=== PATIENT | female | born 1985 | race Caucasian/White ===

== ENCOUNTER 2017-12-12 07:25 | Emergency (ER) | payer OTHER ==
[~2017-12-12] VITALS: Ht 172.7 cm; Wt 90.7 kg
[~2017-12-12 07:25] MED LIST: BENTYL20 MG PO; HYDACE5 PO; IBUP400 PO; Prilosec20 MG PO; RXHYD5325 PO; Zofran Odt4 MG SL
[2017-12-12] MEDS ORDERED: ARIP10 PO (07:57)
[2017-12-12] MEDS ORDERED: LAMICTAL ODT50 MG PO (07:57)
[2017-12-12] MEDS ORDERED: Ativan0.5 MG PO (07:57)
[2017-12-12 09:31] LABS: BASOPHILS ABSOLUTE AUTO 0.01 K/mm3 (0.00-0.23); BASOPHILS PERCENT AUTO 0 % (0-2); EOSINOPHILS PERCENT AUTO 0 % (0-6); Hematocrit 33.9 % (33.0-51.0); Hemoglobin 11.7 g/dL (11.5-16.0); IMMATURE GRAN ABSOLUTE AUTO 0.02 K/mm3 (0.00-0.10); IMMATURE GRAN PERCENT AUTO 0 % (0-1); LYMPHOCYTES ABSOLUTE AUTO 0.73 K/mm3 (0.84-5.20); LYMPHOCYTES PERCENT AUTO 6 % (21-46); MONOCYTES ABSOLUTE AUTO 0.61 K/mm3 (0.16-1.47); MONOCYTES PERCENT AUTO 5 % (4-13); Mean Corpuscular HGB 30.6 pg (26.0-34.0); Mean Corpuscular HGB Conc 34.5 g/dL (31.5-36.5); Mean Corpuscular Volume 89 fL (80-100); Mean Platelet Volume 10.9 fL (9.1-12.4); NEUTROPHILS ABSOLUTE AUTO 10.28 K/mm3 (1.96-9.15); NEUTROPHILS PERCENT AUTO 88 % (41-73); Platelet Count 231 K/mm3 (150-400); RDW Coefficient Variation 12.6 % (11.7-14.2); RDW Standard Deviation 41.1 fL (35.1-46.3); Red Blood Cell Count 3.82 M/mm3 (3.80-5.20); White Blood Cell Count 11.65 K/mm3 (4.00-11.30)
[2017-12-12] MEDS ORDERED: Zofran Odt4 MG PO (09:56)
[2017-12-12] MEDS ORDERED: HYDR1TAB94 PO (09:56)
[2017-12-12 09:58] LABS: Alanine Aminotransfer (ALT/SGP 16 U/L (12-78); Albumin, Blood 3.9 g/dL (3.4-5.0); Albumin/Globulin Ratio 1.3 (0.8-1.8); Alk Phos 57 U/L (50-136); Anion Gap 9 mmol/L (6-16); Aspartate Aminotrans (AST/SGOT 14 U/L (12-37); Bilirubin, Total 0.7 mg/dL (0.1-1.0); Blood Urea Nitrogen 6 mg/dL (8-24); Bun/Creatinine Ratio 9.6 (12.0-20.0); CO2, Blood 25 mmol/L (21-32); Calcium, Blood 8.4 mg/dL (8.5-10.1); Chloride, Blood 103 mmol/L (98-108); Creatinine, Blood 0.63 mg/dL (0.40-1.00); Globulin, Blood 3.1 g/dL (2.2-4.0); Glomerular Filtration Rate >60 (60-); Glucose, Blood 117 mg/dL (70-99); Potassium, Blood 2.9 mmol/L (3.5-5.5); Sodium, Blood 137 mmol/L (136-145)
== END 2017-12-12 10:18 | disposition home or self-care (01) ==
LOC: ER 07:25
PROVIDERS: Physician Assistant
DX: K80.20 Calculus of gallbladder without cholecystitis without obstruction (principal)
CPT/HCPCS: 36415; 76705; 80053; 83690; 85025; 96361; 96374; 96375; 99284-25; J2405; J2550; J7030

== ENCOUNTER 2018-10-03 13:08 | Emergency (ER) | payer OTHER ==
[~2018-10-03] VITALS: Ht 172.7 cm; Wt 95.2 kg
[~2018-10-03 13:08] MED LIST changes: +ARIP10 PO; +Ativan0.5 MG PO; +CEPH500 PO; +HYDR1TAB94 PO; +LAMICTAL ODT50 MG PO; +Norco 5-325 Ta1 EACH PO; +PROM25 PO; +QUET100 PO; +Zofran Odt4 MG PO
[2018-10-03 13:42] LABS: BASOPHILS ABSOLUTE AUTO 0.03 K/mm3 (0.00-0.23); BASOPHILS PERCENT AUTO 0 % (0-2); EOSINOPHILS PERCENT AUTO 0 % (0-6); Hematocrit 37.3 % (33.0-51.0); Hemoglobin 12.3 g/dL (11.5-16.0); IMMATURE GRAN ABSOLUTE AUTO 0.06 K/mm3 (0.00-0.10); IMMATURE GRAN PERCENT AUTO 0 % (0-1); LYMPHOCYTES ABSOLUTE AUTO 1.13 K/mm3 (0.84-5.20); LYMPHOCYTES PERCENT AUTO 7 % (21-46); MONOCYTES PERCENT AUTO 4 % (4-13); Mean Corpuscular Volume 91 fL (80-100); NEUTROPHILS ABSOLUTE AUTO 13.94 K/mm3 (1.96-9.15); NEUTROPHILS PERCENT AUTO 88 % (41-73); Platelet Count 285 K/mm3 (150-400); RDW Coefficient Variation 13.3 % (11.7-14.2); RDW Standard Deviation 44.9 fL (35.1-46.3); White Blood Cell Count 15.86 K/mm3 (4.00-11.30)
[2018-10-03 13:55] LABS: Alanine Aminotransfer (ALT/SGP 16 U/L (12-78); Albumin, Blood 3.9 g/dL (3.4-5.0); Albumin/Globulin Ratio 1.1 (0.8-1.8); Alk Phos 59 U/L (50-136); Anion Gap 12 mmol/L (6-16); Aspartate Aminotrans (AST/SGOT 13 U/L (12-37); Bilirubin, Total 0.3 mg/dL (0.1-1.0); Blood Urea Nitrogen 6 mg/dL (8-24); Bun/Creatinine Ratio 9.7 (12.0-20.0); CO2, Blood 21 mmol/L (21-32); Calcium, Blood 9.2 mg/dL (8.5-10.1); Chloride, Blood 103 mmol/L (98-108); Creatinine, Blood 0.62 mg/dL (0.40-1.00); Globulin, Blood 3.5 g/dL (2.2-4.0); Glomerular Filtration Rate >60 (60-); Glucose, Blood 120 mg/dL (70-99); Potassium, Blood 3.2 mmol/L (3.5-5.5); Sodium, Blood 136 mmol/L (136-145); Total Protein, Blood 7.4 g/dL (6.4-8.2)
[2018-10-03 14:00] LABS: Source, Urine Clean Catch
[2018-10-03 14:02] LABS: Bilirubin, Urine Neg (Neg); Blood, Urine 1+ (Neg); Glucose Qualitative, Urine Neg (Neg); Ketones, Urine 3+ (Neg); Leukocyte Esterase, Urine 1+ (Neg); Nitrite, Urine Neg (Neg); Protein, Urine 1+ (Neg); Specific Gravity, Urine 1.015 (1.003-1.022); Urobilinogen, Urine NORM (Normal)
[2018-10-03 14:16] LABS: Appearance, Urine Clear (Clear); Color, Urine Yellow (P-Yellow)
[2018-10-03 14:18] LABS: Red Blood Cells, Urine 0-2 /hpf (0-2); White Blood Cells, Urine 0-2 /hpf (0-5)
[2018-10-03 14:19] LABS: Bacteria Mod /hpf; Squamous Epithelial Cells Mod /hpf (Few)
[2018-10-03 14:20] LABS: Mucus Light (0-Heavy)
[2018-10-03] MEDS ORDERED: OMEPRAZOLE MAGN20 MG PO (15:03)
[2018-10-03] MEDS ORDERED: COMPAZINE10 MG PO (15:03)
[2018-10-03] MEDS ORDERED: Roxicodone5 MG PO (15:03)
== END 2018-10-03 15:28 | disposition home or self-care (01) ==
LOC: ER 13:08
PROVIDERS: Emergency Medicine
DX: R11.2 Nausea with vomiting, unspecified (principal); R10.84 Generalized abdominal pain; R19.7 Diarrhea, unspecified
CPT/HCPCS: 36415; 80053; 81001; 81025; 83690; 85025; 87086; 96374; 99284-25; J1170; J7030

== ENCOUNTER 2018-10-05 13:50 | Observation (INO) | payer OTHER ==
[~2018-10-05] VITALS: Ht 172.7 cm; Wt 86.2 kg
[~2018-10-05 13:50] MED LIST changes: +COMPAZINE10 MG PO; +OMEPRAZOLE MAGN20 MG PO; +Roxicodone5 MG PO
[2018-10-05 15:45] LABS: Source, Urine Clean Catch
[2018-10-05 15:58] LABS: Appearance, Urine Clear (Clear); Bilirubin, Urine Neg (Neg); Blood, Urine 1+ (Neg); Color, Urine Yellow (P-Yellow); Glucose Qualitative, Urine Neg (Neg); Ketones, Urine Neg (Neg); Leukocyte Esterase, Urine Neg (Neg); Nitrite, Urine Neg (Neg); Protein, Urine Neg (Neg); Specific Gravity, Urine 1.005 (1.003-1.022); Urobilinogen, Urine NORM (Normal)
[2018-10-05 16:14] LABS: Red Blood Cells, Urine 0-2 /hpf (0-2); Squamous Epithelial Cells Few /hpf (Few); White Blood Cells, Urine 0-2 /hpf (0-5)
[2018-10-05 16:16] LABS: Bacteria Few /hpf
[2018-10-05 16:19] LABS: BASOPHILS ABSOLUTE AUTO 0.05 K/mm3 (0.00-0.23); BASOPHILS PERCENT AUTO 0 % (0-2); EOSINOPHILS ABSOLUTE AUTO 0.03 K/mm3 (0.00-0.68); EOSINOPHILS PERCENT AUTO 0 % (0-6); Hematocrit 37.9 % (33.0-51.0); IMMATURE GRAN ABSOLUTE AUTO 0.04 K/mm3 (0.00-0.10); IMMATURE GRAN PERCENT AUTO 0 % (0-1); LYMPHOCYTES ABSOLUTE AUTO 4.41 K/mm3 (0.84-5.20); LYMPHOCYTES PERCENT AUTO 31 % (21-46); MONOCYTES ABSOLUTE AUTO 1.72 K/mm3 (0.16-1.47); MONOCYTES PERCENT AUTO 12 % (4-13); Mean Corpuscular HGB 29.4 pg (26.0-34.0); Mean Corpuscular HGB Conc 34.3 g/dL (31.5-36.5); Mean Platelet Volume 10.8 fL (9.1-12.4); NEUTROPHILS ABSOLUTE AUTO 7.86 K/mm3 (1.96-9.15); NEUTROPHILS PERCENT AUTO 56 % (41-73); Platelet Count 301 K/mm3 (150-400); RDW Coefficient Variation 13.1 % (11.7-14.2); RDW Standard Deviation 41.2 fL (35.1-46.3); Red Blood Cell Count 4.42 M/mm3 (3.80-5.20); White Blood Cell Count 14.11 K/mm3 (4.00-11.30)
[2018-10-05 16:28] LABS: Mean Corpuscular Volume 86 fL (80-100)
[2018-10-05 16:40] LABS: Alanine Aminotransfer (ALT/SGP 21 U/L (12-78); Albumin, Blood 4.1 g/dL (3.4-5.0); Albumin/Globulin Ratio 1.2 (0.8-1.8); Alk Phos 59 U/L (50-136); Anion Gap 10 mmol/L (6-16); Aspartate Aminotrans (AST/SGOT 15 U/L (12-37); Bilirubin, Total 0.6 mg/dL (0.1-1.0); Blood Urea Nitrogen 3 mg/dL (8-24); Bun/Creatinine Ratio 4.5 (12.0-20.0); CO2, Blood 26 mmol/L (21-32); Calcium, Blood 9.1 mg/dL (8.5-10.1); Chloride, Blood 97 mmol/L (98-108); Creatinine, Blood 0.67 mg/dL (0.40-1.00); Globulin, Blood 3.3 g/dL (2.2-4.0); Glomerular Filtration Rate >60 (60-); Glucose, Blood 105 mg/dL (70-99); Potassium, Blood 2.3 mmol/L (3.5-5.5); Sodium, Blood 133 mmol/L (136-145); Total Protein, Blood 7.4 g/dL (6.4-8.2)
[2018-10-05 21:16] LABS: Magnesium, Blood 2.2 mg/dL (1.6-2.4); Potassium, Blood 2.8 mmol/L (3.5-5.5)
[2018-10-06 05:33] LABS: Alanine Aminotransfer (ALT/SGP 21 U/L (12-78); Albumin, Blood 3.3 g/dL (3.4-5.0); Albumin/Globulin Ratio 1.1 (0.8-1.8); Alk Phos 49 U/L (50-136); Anion Gap 5 mmol/L (6-16); Aspartate Aminotrans (AST/SGOT 16 U/L (12-37); Bilirubin, Total 0.5 mg/dL (0.1-1.0); Blood Urea Nitrogen 4 mg/dL (8-24); Bun/Creatinine Ratio 5.6 (12.0-20.0); CO2, Blood 29 mmol/L (21-32); Calcium, Blood 7.9 mg/dL (8.5-10.1); Chloride, Blood 107 mmol/L (98-108); Creatinine, Blood 0.71 mg/dL (0.40-1.00); Globulin, Blood 2.9 g/dL (2.2-4.0); Glomerular Filtration Rate >60 (60-); Glucose, Blood 114 mg/dL (70-99); Potassium, Blood 3.8 mmol/L (3.5-5.5); Sodium, Blood 141 mmol/L (136-145); Total Protein, Blood 6.2 g/dL (6.4-8.2)
[2018-10-06] MEDS ORDERED: Colace100 MG PO (11:00)
[2018-10-06] MEDS ORDERED: HYOS.125 PO (11:02)
--- NOTE | 2018-10-06 11:32 | NUR ---
PT DCD HOME WITH MOM. ALL MEDICATION AND F/U ORDERS REVIEWED WITH PT WHO VERBALIZED AND UNDERSTANDING. ORDERS WERE FAXED TO [facility] PER PT REQUEST. ALL BELONGINGS SENT WITH PT. PT STABLE UPON DC.
== END 2018-10-06 11:18 | disposition home or self-care (01) ==
LOC: ER 13:50 → MEDS 13:51 → ENPENDDIS 10-06 09:59 → MEDS 10-06 11:18
PROVIDERS: Emergency Medicine; ADMIT Internal Medicine
DX: R11.2 Nausea with vomiting, unspecified (principal); R19.7 Diarrhea, unspecified; E87.6 Hypokalemia; R10.9 Unspecified abdominal pain; R10.2 Pelvic and perineal pain; F41.0 Panic disorder [episodic paroxysmal anxiety]; F31.9 Bipolar disorder, unspecified
CPT/HCPCS: 36415; 76770; 76830; 76856; 80053; 81001; 81025; 82533; 83735; 84132; 85025; 96361; 96365; 96366; 96375; 96376; 99285-25; G0378; J1170; J1200; J1630; J3480; J7030

== ENCOUNTER 2018-10-16 01:35 | Emergency (ER) | payer OTHER ==
[~2018-10-16] VITALS: Ht 172.7 cm; Wt 90.7 kg
[~2018-10-16 01:35] MED LIST changes: +Colace100 MG PO; +HYOS.125 PO
[2018-10-16 02:18] LABS: BASOPHILS ABSOLUTE AUTO 0.05 K/mm3 (0.00-0.23); BASOPHILS PERCENT AUTO 0 % (0-2); EOSINOPHILS ABSOLUTE AUTO 0.01 K/mm3 (0.00-0.68); EOSINOPHILS PERCENT AUTO 0 % (0-6); Hemoglobin 12.6 g/dL (11.5-16.0); IMMATURE GRAN PERCENT AUTO 1 % (0-1); LYMPHOCYTES ABSOLUTE AUTO 2.15 K/mm3 (0.84-5.20); LYMPHOCYTES PERCENT AUTO 12 % (21-46); MONOCYTES ABSOLUTE AUTO 0.93 K/mm3 (0.16-1.47); MONOCYTES PERCENT AUTO 5 % (4-13); Mean Corpuscular HGB 29.8 pg (26.0-34.0); Mean Corpuscular HGB Conc 34.1 g/dL (31.5-36.5); Mean Corpuscular Volume 88 fL (80-100); Mean Platelet Volume 10.5 fL (9.1-12.4); NEUTROPHILS ABSOLUTE AUTO 14.95 K/mm3 (1.96-9.15); NEUTROPHILS PERCENT AUTO 82 % (41-73); Platelet Count 331 K/mm3 (150-400); RDW Coefficient Variation 13.4 % (11.7-14.2); RDW Standard Deviation 42.6 fL (35.1-46.3); Red Blood Cell Count 4.23 M/mm3 (3.80-5.20); White Blood Cell Count 18.19 K/mm3 (4.00-11.30)
[2018-10-16 02:33] LABS: Alanine Aminotransfer (ALT/SGP 19 U/L (12-78); Albumin, Blood 3.9 g/dL (3.4-5.0); Albumin/Globulin Ratio 1.1 (0.8-1.8); Alk Phos 63 U/L (50-136); Anion Gap 9 mmol/L (6-16); Aspartate Aminotrans (AST/SGOT 10 U/L (12-37); Bilirubin, Total 0.5 mg/dL (0.1-1.0); Blood Urea Nitrogen 6 mg/dL (8-24); CO2, Blood 25 mmol/L (21-32); Calcium, Blood 9.1 mg/dL (8.5-10.1); Chloride, Blood 104 mmol/L (98-108); Creatinine, Blood 0.67 mg/dL (0.40-1.00); Globulin, Blood 3.4 g/dL (2.2-4.0); Glomerular Filtration Rate >60 (60-); Glucose, Blood 147 mg/dL (70-99); Potassium, Blood 2.9 mmol/L (3.5-5.5); Sodium, Blood 138 mmol/L (136-145); Total Protein, Blood 7.3 g/dL (6.4-8.2)
[2018-10-16 03:59] LABS: Source, Urine Clean Catch
[2018-10-16 04:03] LABS: Bilirubin, Urine Neg (Neg); Blood, Urine Neg (Neg); Glucose Qualitative, Urine Neg (Neg); Ketones, Urine 4+ (Neg); Leukocyte Esterase, Urine 1+ (Neg); Nitrite, Urine Neg (Neg); Protein, Urine 2+ (Neg); Specific Gravity, Urine 1.015 (1.003-1.022); Urobilinogen, Urine NORM (Normal)
[2018-10-16 04:14] LABS: Appearance, Urine Clear (Clear); Color, Urine Yellow (P-Yellow)
[2018-10-16 04:15] LABS: Bacteria Few /hpf; Mucus Light (0-Heavy); Red Blood Cells, Urine Not Seen /hpf (0-2); Squamous Epithelial Cells Few /hpf (Few); White Blood Cells, Urine 0-2 /hpf (0-5)
[2018-10-16] MEDS ORDERED: PROM25 PO (06:29)
[2018-10-16] MEDS ORDERED: POTCHL20ER PO (06:29)
== END 2018-10-16 06:31 | disposition home or self-care (01) ==
LOC: ER 01:35
PROVIDERS: Emergency Medicine
DX: E87.6 Hypokalemia (principal); E86.0 Dehydration; Z87.891 Personal history of nicotine dependence
CPT/HCPCS: 36415; 80053; 81001; 82272; 83690; 85025; 87086; 96361; 96374; 96375; 99283-25; J1630; J2405; J2550; J7030

== ENCOUNTER 2019-02-15 13:01 | Day surgery (SDC) | payer OTHER ==
[~2019-02-15] VITALS: Ht 172.7 cm; Wt 91.3 kg
[~2019-02-15 13:01] MED LIST changes: +LAMO25 PO; +OMEPRAZOLE20 MG PO; +POTCHL20ER PO; +QUET25 PO
== END 2019-02-15 14:33 | disposition home or self-care (01) ==
LOC: ORSCSDS 13:01
PROVIDERS: Internal Medicine Gastroenterology
PROC: 0DJ08ZZ Inspection of Upper Intestinal Tract, Via Natural or Artificial Opening Endoscopic (ICD-10-PCS; principal; 2019-02-15 14:30)
DX: R11.2 Nausea with vomiting, unspecified (principal); K20.9 Esophagitis, unspecified; R19.7 Diarrhea, unspecified; K92.1 Melena; Z79.899 Other long term (current) drug therapy
CPT/HCPCS: J2250; J2704; J7120

== ENCOUNTER 2019-04-02 12:20 | Emergency (ER) | payer OTHER ==
[~2019-04-02] VITALS: Ht 172.7 cm; Wt 90.7 kg
[2019-04-02 12:48] LABS: BASOPHILS ABSOLUTE AUTO 0.02 K/mm3 (0.00-0.23); BASOPHILS PERCENT AUTO 0 % (0-2); EOSINOPHILS PERCENT AUTO 0 % (0-6); Hematocrit 34.7 % (33.0-51.0); Hemoglobin 11.3 g/dL (11.5-16.0); IMMATURE GRAN ABSOLUTE AUTO 0.04 K/mm3 (0.00-0.10); IMMATURE GRAN PERCENT AUTO 0 % (0-1); LYMPHOCYTES ABSOLUTE AUTO 0.95 K/mm3 (0.84-5.20); LYMPHOCYTES PERCENT AUTO 7 % (21-46); MONOCYTES PERCENT AUTO 3 % (4-13); Mean Corpuscular HGB 28.8 pg (26.0-34.0); Mean Corpuscular HGB Conc 32.6 g/dL (31.5-36.5); Mean Corpuscular Volume 88 fL (80-100); Mean Platelet Volume 10.4 fL (9.1-12.4); NEUTROPHILS ABSOLUTE AUTO 12.09 K/mm3 (1.96-9.15); NEUTROPHILS PERCENT AUTO 90 % (41-73); Platelet Count 294 K/mm3 (150-400); RDW Coefficient Variation 13.9 % (11.7-14.2); RDW Standard Deviation 45.1 fL (35.1-46.3); Red Blood Cell Count 3.93 M/mm3 (3.80-5.20)
[2019-04-02 13:11] LABS: Alanine Aminotransfer (ALT/SGP 25 U/L (12-78); Albumin, Blood 3.5 g/dL (3.4-5.0); Albumin/Globulin Ratio 0.8 (0.8-1.8); Alk Phos 61 U/L (50-136); Anion Gap 11 mmol/L (6-16); Aspartate Aminotrans (AST/SGOT 16 U/L (12-37); Bilirubin, Total 0.3 mg/dL (0.1-1.0); Blood Urea Nitrogen 7 mg/dL (8-24); Bun/Creatinine Ratio 13.2 (12.0-20.0); CO2, Blood 22 mmol/L (21-32); Calcium, Blood 9.5 mg/dL (8.5-10.1); Chloride, Blood 101 mmol/L (98-108); Creatinine, Blood 0.53 mg/dL (0.40-1.00); Globulin, Blood 4.2 g/dL (2.2-4.0); Glomerular Filtration Rate >60 (60-); Glucose, Blood 133 mg/dL (70-99); Potassium, Blood 3.3 mmol/L (3.5-5.5); Sodium, Blood 134 mmol/L (136-145); Total Protein, Blood 7.7 g/dL (6.4-8.2)
[2019-04-02 15:08] LABS: Source, Urine Clean Catch
[2019-04-02 15:13] LABS: Bilirubin, Urine Neg (Neg); Blood, Urine Neg (Neg); Glucose Qualitative, Urine Neg (Neg); Ketones, Urine 4+ (Neg); Leukocyte Esterase, Urine Neg (Neg); Nitrite, Urine Neg (Neg); Protein, Urine 1+ (Neg); Specific Gravity, Urine 1.015 (1.003-1.022); Urobilinogen, Urine NORM (Normal)
[2019-04-02 15:29] LABS: Appearance, Urine Clear (Clear); Color, Urine Yellow (P-Yellow)
== END 2019-04-02 14:57 | disposition home or self-care (01) ==
LOC: ER 12:20
PROVIDERS: Emergency Medicine
DX: O21.8 Other vomiting complicating pregnancy (principal); O99.89 Other specified diseases and conditions complicating pregnancy, childbirth and the puerperium; R10.9 Unspecified abdominal pain; Z3A.01 Less than 8 weeks gestation of pregnancy; Z79.899 Other long term (current) drug therapy; Z87.891 Personal history of nicotine dependence
CPT/HCPCS: 36415; 80053; 83690; 84702; 84703; 85025; 86900; 86901; 96361; 96374; 96375; 99284-25; J1200; J2405; J7120

== ENCOUNTER 2019-04-26 08:38 | Observation (INO) | payer OTHER ==
[~2019-04-26] VITALS: Ht 172.7 cm; Wt 90.7 kg
[2019-04-26 10:25] LABS: Source, Urine Clean Catch
[2019-04-26 10:29] LABS: Bilirubin, Urine Neg (Neg); Blood, Urine Neg (Neg); Glucose Qualitative, Urine Neg (Neg); Ketones, Urine 4+ (Neg); Leukocyte Esterase, Urine Neg (Neg); Nitrite, Urine Neg (Neg); Protein, Urine 2+ (Neg); Urobilinogen, Urine NORM (Normal)
[2019-04-26 10:31] LABS: BASOPHILS ABSOLUTE AUTO 0.02 K/mm3 (0.00-0.23); BASOPHILS PERCENT AUTO 0 % (0-2); EOSINOPHILS PERCENT AUTO 0 % (0-6); Hematocrit 33.4 % (33.0-51.0); Hemoglobin 11.6 g/dL (11.5-16.0); IMMATURE GRAN ABSOLUTE AUTO 0.07 K/mm3 (0.00-0.10); IMMATURE GRAN PERCENT AUTO 0 % (0-1); LYMPHOCYTES ABSOLUTE AUTO 1.45 K/mm3 (0.84-5.20); LYMPHOCYTES PERCENT AUTO 8 % (21-46); MONOCYTES ABSOLUTE AUTO 1.31 K/mm3 (0.16-1.47); MONOCYTES PERCENT AUTO 7 % (4-13); Mean Corpuscular HGB 29.2 pg (26.0-34.0); Mean Corpuscular HGB Conc 34.7 g/dL (31.5-36.5); Mean Platelet Volume 11.2 fL (9.1-12.4); NEUTROPHILS ABSOLUTE AUTO 15.22 K/mm3 (1.96-9.15); NEUTROPHILS PERCENT AUTO 84 % (41-73); Platelet Count 333 K/mm3 (150-400); RDW Coefficient Variation 14.2 % (11.7-14.2); Red Blood Cell Count 3.97 M/mm3 (3.80-5.20); White Blood Cell Count 18.07 K/mm3 (4.00-11.30)
[2019-04-26 10:37] LABS: Mean Corpuscular Volume 84 fL (80-100)
[2019-04-26 10:43] LABS: Alanine Aminotransfer (ALT/SGP 17 U/L (12-78); Albumin, Blood 3.5 g/dL (3.4-5.0); Albumin/Globulin Ratio 0.8 (0.8-1.8); Alk Phos 54 U/L (50-136); Anion Gap 11 mmol/L (6-16); Aspartate Aminotrans (AST/SGOT 12 U/L (12-37); Bilirubin, Total 0.4 mg/dL (0.1-1.0); Blood Urea Nitrogen 5 mg/dL (8-24); Bun/Creatinine Ratio 9.7 (12.0-20.0); CO2, Blood 25 mmol/L (21-32); Calcium, Blood 9.2 mg/dL (8.5-10.1); Chloride, Blood 96 mmol/L (98-108); Creatinine, Blood 0.51 mg/dL (0.40-1.00); Globulin, Blood 4.3 g/dL (2.2-4.0); Glomerular Filtration Rate >60 (60-); Glucose, Blood 118 mg/dL (70-99); Potassium, Blood 2.5 mmol/L (3.5-5.5); Sodium, Blood 132 mmol/L (136-145); Total Protein, Blood 7.8 g/dL (6.4-8.2)
[2019-04-26 10:48] LABS: Appearance, Urine Hazy (Clear); Color, Urine Yellow (P-Yellow)
[2019-04-26 10:51] LABS: Bacteria Mod /hpf; Red Blood Cells, Urine 0-2 /hpf (0-2); Squamous Epithelial Cells Mod /hpf (Few)
[2019-04-26 14:37] LABS: Anion Gap 11 mmol/L (6-16); Blood Urea Nitrogen 4 mg/dL (8-24); CO2, Blood 24 mmol/L (21-32); Calcium, Blood 8.3 mg/dL (8.5-10.1); Chloride, Blood 101 mmol/L (98-108); Glomerular Filtration Rate >60 (60-); Glucose, Blood 106 mg/dL (70-99); Potassium, Blood 2.5 mmol/L (3.5-5.5); Sodium, Blood 136 mmol/L (136-145)
--- NOTE | 2019-04-26 17:29 | NUR ---
PT STATES SHE IS DOESN'T FEEL GOOD AND DOES NOT WANT TO ANSWER ANYMORE QUESTIONS
[2019-04-27 06:15] LABS: BASOPHILS ABSOLUTE AUTO 0.04 K/mm3 (0.00-0.23); BASOPHILS PERCENT AUTO 0 % (0-2); EOSINOPHILS ABSOLUTE AUTO 0.02 K/mm3 (0.00-0.68); EOSINOPHILS PERCENT AUTO 0 % (0-6); Hematocrit 30.8 % (33.0-51.0); Hemoglobin 10.2 g/dL (11.5-16.0); IMMATURE GRAN ABSOLUTE AUTO 0.06 K/mm3 (0.00-0.10); IMMATURE GRAN PERCENT AUTO 0 % (0-1); LYMPHOCYTES ABSOLUTE AUTO 2.11 K/mm3 (0.84-5.20); LYMPHOCYTES PERCENT AUTO 13 % (21-46); MONOCYTES ABSOLUTE AUTO 1.09 K/mm3 (0.16-1.47); MONOCYTES PERCENT AUTO 7 % (4-13); Mean Corpuscular HGB 29.1 pg (26.0-34.0); Mean Corpuscular HGB Conc 33.1 g/dL (31.5-36.5); Mean Platelet Volume 10.8 fL (9.1-12.4); NEUTROPHILS ABSOLUTE AUTO 12.66 K/mm3 (1.96-9.15); NEUTROPHILS PERCENT AUTO 79 % (41-73); Platelet Count 250 K/mm3 (150-400); RDW Standard Deviation 48.3 fL (35.1-46.3); Red Blood Cell Count 3.51 M/mm3 (3.80-5.20); White Blood Cell Count 15.98 K/mm3 (4.00-11.30)
[2019-04-27 06:17] LABS: Mean Corpuscular Volume 88 fL (80-100)
[2019-04-27 06:28] LABS: Alanine Aminotransfer (ALT/SGP 17 U/L (12-78); Albumin, Blood 2.9 g/dL (3.4-5.0); Albumin/Globulin Ratio 0.9 (0.8-1.8); Alk Phos 46 U/L (50-136); Anion Gap 10 mmol/L (6-16); Aspartate Aminotrans (AST/SGOT 12 U/L (12-37); Bilirubin, Total 0.6 mg/dL (0.1-1.0); Blood Urea Nitrogen 4 mg/dL (8-24); Bun/Creatinine Ratio 7.4 (12.0-20.0); CO2, Blood 21 mmol/L (21-32); Calcium, Blood 8.1 mg/dL (8.5-10.1); Chloride, Blood 108 mmol/L (98-108); Creatinine, Blood 0.54 mg/dL (0.40-1.00); Globulin, Blood 3.3 g/dL (2.2-4.0); Glomerular Filtration Rate >60 (60-); Glucose, Blood 94 mg/dL (70-99); Potassium, Blood 2.9 mmol/L (3.5-5.5); Sodium, Blood 139 mmol/L (136-145); Total Protein, Blood 6.2 g/dL (6.4-8.2)
--- NOTE | 2019-04-27 11:02 | NUR ---
ASSUMED CARE OF PATIENT AWAKE AND RESTING IN BED. VSS. OOB TO BATHROOM WITH DIAHREHA. PATIENT HAS LONGSTANDING HISTORY OF GI PROBLEMS.
--- NOTE | 2019-04-27 16:10 | NUR ---
DR GARCIA NOTIFIED OF PT 8-12/07 ABD PAIN AND CRAMPING ORDERS TO GIVE SIMETHACONE AND GI COCKTRAIL FOR ABD PAIN
--- NOTE | 2019-04-27 18:04 | NUR ---
PT WAS PAIN FREE AFTER SIMETHACONE AND GI COCKTAIL [facility] WITH IN 10 MIN PAIN WAS BACK IN PELVIC AREA PT ROCKING AND HOLDING ABD
--- NOTE | 2019-04-27 20:24 | NUR ---
PT DISCHARGED HOME, DISCHARGE INSTRUCTIONS GIVEN, PT DECLINED TO GO OVER THEM OR SIGN THE PATIENT SIGNATURE PAGE.
== END 2019-04-27 20:25 | disposition home or self-care (01) ==
LOC: ER 08:38 → BC 15:42
PROVIDERS: Physician Assistant; Registered Nurse Community Health; ADMIT Obstetrics & Gynecology
DX: O21.1 Hyperemesis gravidarum with metabolic disturbance (principal); O99.612 Diseases of the digestive system complicating pregnancy, second trimester; K21.9 Gastro-esophageal reflux disease without esophagitis; K29.80 Duodenitis without bleeding; Z3A.22 22 weeks gestation of pregnancy; Z87.891 Personal history of nicotine dependence; Z79.899 Other long term (current) drug therapy
CPT/HCPCS: 36415; 80048; 80053; 81001; 82150; 83690; 83735; 84132; 85025; 87086; 96361; 96365; 96375; 96376; 99285-25; C9113; G0378; J1200; J2405; J2550; J3480; J7030; J7120

== ENCOUNTER → 2019-05-19 | Outpatient (CLI) | payer OTHER ==
[2019-05-20 10:39] LABS: Candida species (DNA Probe) Negative (NEGATIVE); G. vaginalis (DNA Probe) Negative (NEGATIVE); T. vaginalis (DNA Probe) Negative (NEGATIVE)
== END | disposition home or self-care (01) ==
LOC: LAB 10:00 → LAB SHORT 10:00
PROVIDERS: Obstetrics & Gynecology
DX: L29.3 Anogenital pruritus, unspecified (principal)
CPT/HCPCS: 87480; 87510; 87660

== ENCOUNTER 2019-07-04 07:02 | Emergency (ER) | payer OTHER ==
[~2019-07-04] VITALS: Ht 172.7 cm; Wt 90.7 kg
[2019-07-04 07:33] LABS: Source, Urine Clean Catch
[2019-07-04 07:36] LABS: BASOPHILS ABSOLUTE AUTO 0.02 K/mm3 (0.00-0.23); BASOPHILS PERCENT AUTO 0 % (0-2); EOSINOPHILS ABSOLUTE AUTO 0.06 K/mm3 (0.00-0.68); EOSINOPHILS PERCENT AUTO 0 % (0-6); Hematocrit 33.1 % (33.0-51.0); Hemoglobin 10.8 g/dL (11.5-16.0); IMMATURE GRAN ABSOLUTE AUTO 0.05 K/mm3 (0.00-0.10); IMMATURE GRAN PERCENT AUTO 0 % (0-1); LYMPHOCYTES PERCENT AUTO 10 % (21-46); MONOCYTES ABSOLUTE AUTO 1.01 K/mm3 (0.16-1.47); MONOCYTES PERCENT AUTO 7 % (4-13); Mean Corpuscular HGB 29.3 pg (26.0-34.0); Mean Corpuscular HGB Conc 32.6 g/dL (31.5-36.5); Mean Corpuscular Volume 90 fL (80-100); Mean Platelet Volume 10.9 fL (9.1-12.4); NEUTROPHILS ABSOLUTE AUTO 12.83 K/mm3 (1.96-9.15); NEUTROPHILS PERCENT AUTO 82 % (41-73); Platelet Count 291 K/mm3 (150-400); RDW Standard Deviation 45.7 fL (35.1-46.3); Red Blood Cell Count 3.68 M/mm3 (3.80-5.20); White Blood Cell Count 15.57 K/mm3 (4.00-11.30)
[2019-07-04 07:38] LABS: Bilirubin, Urine Neg (Neg); Blood, Urine 1+ (Neg); Glucose Qualitative, Urine Neg (Neg); Ketones, Urine 4+ (Neg); Leukocyte Esterase, Urine 1+ (Neg); Nitrite, Urine Neg (Neg); Protein, Urine 1+ (Neg); Urobilinogen, Urine 1+ (Normal)
[2019-07-04 07:47] LABS: Appearance, Urine Cloudy (Clear); Color, Urine Yellow (P-Yellow)
[2019-07-04 07:49] LABS: Bacteria Mod /hpf; Mucus Mod (0-Heavy); Red Blood Cells, Urine 0-2 /hpf (0-2); Squamous Epithelial Cells Mod /hpf (Few)
[2019-07-04] MEDS ORDERED: PRENATAL TABLE1 EAC2 PO ×2 (07:49)
[2019-07-04 07:54] LABS: Alanine Aminotransfer (ALT/SGP 54 U/L (12-78); Albumin, Blood 2.9 g/dL (3.4-5.0); Albumin/Globulin Ratio 0.7 (0.8-1.8); Alk Phos 72 U/L (50-136); Anion Gap 7 mmol/L (6-16); Aspartate Aminotrans (AST/SGOT 19 U/L (12-37); Bilirubin, Total 0.1 mg/dL (0.1-1.0); Blood Urea Nitrogen 9 mg/dL (8-24); CO2, Blood 28 mmol/L (21-32); Calcium, Blood 8.6 mg/dL (8.5-10.1); Chloride, Blood 101 mmol/L (98-108); Creatinine, Blood 0.64 mg/dL (0.40-1.00); Glomerular Filtration Rate >60 (60-); Glucose, Blood 115 mg/dL (70-99); Potassium, Blood 3.4 mmol/L (3.5-5.5); Sodium, Blood 136 mmol/L (136-145); Total Protein, Blood 6.9 g/dL (6.4-8.2)
[2019-07-05] MEDS ORDERED: CEPH500 PO ×2 (13:14)
[2019-07-05] MEDS ORDERED: Percocet 5-3251 EACH PO ×2 (13:15)
[2019-07-05] MEDS ORDERED: PANT40 PO ×2 (13:15)
== END 2019-07-04 09:32 | disposition home or self-care (01) ==
LOC: ER 07:02 → SURS 07:03 → ER 09:32
PROVIDERS: Emergency Medicine
DX: O21.1 Hyperemesis gravidarum with metabolic disturbance (principal); O99.342 Other mental disorders complicating pregnancy, second trimester; F31.9 Bipolar disorder, unspecified; Z87.891 Personal history of nicotine dependence; Z3A.22 22 weeks gestation of pregnancy
CPT/HCPCS: 76770; 80053; 81001; 83690; 85025; 87086; 96365; 96375; 99285-25; J0696; J3010; J7030

== ENCOUNTER 2019-07-04 09:41 | Observation (INO) | payer OTHER ==
[~2019-07-04] VITALS: Ht 172.7 cm; Wt 88.8 kg
[~2019-07-04 09:41] MED LIST changes: +PRENATAL TABLE1 EAC2 PO
[2019-07-05 06:02] LABS: BASOPHILS ABSOLUTE AUTO 0.03 K/mm3 (0.00-0.23); BASOPHILS PERCENT AUTO 0 % (0-2); EOSINOPHILS ABSOLUTE AUTO 0.07 K/mm3 (0.00-0.68); EOSINOPHILS PERCENT AUTO 1 % (0-6); Hematocrit 27.8 % (33.0-51.0); Hemoglobin 9.3 g/dL (11.5-16.0); IMMATURE GRAN ABSOLUTE AUTO 0.02 K/mm3 (0.00-0.10); IMMATURE GRAN PERCENT AUTO 0 % (0-1); LYMPHOCYTES ABSOLUTE AUTO 1.84 K/mm3 (0.84-5.20); LYMPHOCYTES PERCENT AUTO 15 % (21-46); MONOCYTES PERCENT AUTO 7 % (4-13); Mean Corpuscular HGB 30.1 pg (26.0-34.0); Mean Corpuscular HGB Conc 33.5 g/dL (31.5-36.5); Mean Corpuscular Volume 90 fL (80-100); Mean Platelet Volume 11.3 fL (9.1-12.4); NEUTROPHILS ABSOLUTE AUTO 9.54 K/mm3 (1.96-9.15); NEUTROPHILS PERCENT AUTO 78 % (41-73); Platelet Count 231 K/mm3 (150-400); RDW Coefficient Variation 14.2 % (11.7-14.2); RDW Standard Deviation 46.5 fL (35.1-46.3); Red Blood Cell Count 3.09 M/mm3 (3.80-5.20)
[2019-07-05 06:19] LABS: Anion Gap 9 mmol/L (6-16); Blood Urea Nitrogen 3 mg/dL (8-24); Bun/Creatinine Ratio 6.1 (12.0-20.0); CO2, Blood 22 mmol/L (21-32); Chloride, Blood 106 mmol/L (98-108); Creatinine, Blood 0.49 mg/dL (0.40-1.00); Glomerular Filtration Rate >60 (60-); Glucose, Blood 84 mg/dL (70-99); Potassium, Blood 3.3 mmol/L (3.5-5.5); Sodium, Blood 137 mmol/L (136-145)
[2019-07-05] MEDS ORDERED: CEPH500 PO (13:14)
[2019-07-05] MEDS ORDERED: Percocet 5-3251 EACH PO (13:15)
[2019-07-05] MEDS ORDERED: PANT40 PO (13:15)
== END 2019-07-05 13:52 | disposition home or self-care (01) ==
LOC: OBS 09:41 → BC 09:46 → OBS 09:46 → BC 09:46
PROVIDERS: ADMIT Obstetrics & Gynecology
DX: O23.02 Infections of kidney in pregnancy, second trimester (principal); O21.0 Mild hyperemesis gravidarum; O99.612 Diseases of the digestive system complicating pregnancy, second trimester; K20.9 Esophagitis, unspecified; O09.522 Supervision of elderly multigravida, second trimester; Z3A.22 22 weeks gestation of pregnancy
CPT/HCPCS: 36415; 80048; 85025; 96361; 96365; 96367; 96375; 96376; A9270-GY; C9113; G0378; J0690; J0696; J2405; J2765; J3010; J7120

== ENCOUNTER → 2019-09-09 | Outpatient (CLI) | payer OTHER ==
[~2019-09-09] MED LIST changes: +FAMO20 PO; +KLOR-CON M1010 MEQ PO; +MAGNESIUM OXID500 MG PO; +METO10 PO; +OMEP20ER PO; +OMEPRAZOLE MAGN20 M1 PO; +PANT40 PO; +Percocet 5-3251 EACH PO; +SUCR1 PO
== END | disposition home or self-care (01) ==
LOC: LAB SHORT 12:00 → LAB 12:00 → EDSTATUS 06-06 13:35 → LAB FUT 06-06 13:35
DX: R10.9 Unspecified abdominal pain (principal); R11.2 Nausea with vomiting, unspecified
CPT/HCPCS: 87338

== ENCOUNTER → 2019-11-17 | Outpatient (CLI) | payer OTHER ==
[~2019-11-17] MED LIST changes: +CYCL10; +FERSU300 PO; +IBUP800 PO; +LABE200 PO; +METO10SY
== END | disposition home or self-care (01) ==
LOC: LAB SHORT 12:27 → LAB 12:27
DX: N76.0 Acute vaginitis (principal)
CPT/HCPCS: 87070; 87205

== ENCOUNTER → 2021-11-12 | Outpatient (CLI) | payer OTHER ==
[~2021-11-12] MED LIST changes: +DICY20 PO; +ONDA4ODT MM
[2021-11-12 19:43] LABS: BASOPHILS ABSOLUTE AUTO 0.05 K/mm3 (0.00-0.23); BASOPHILS PERCENT AUTO 0 % (0-2); EOSINOPHILS ABSOLUTE AUTO 0.16 K/mm3 (0.00-0.68); EOSINOPHILS PERCENT AUTO 1 % (0-6); Hematocrit 38.2 % (33.0-51.0); Hemoglobin 12.7 g/dL (11.5-16.0); IMMATURE GRAN ABSOLUTE AUTO 0.02 K/mm3 (0.00-0.10); IMMATURE GRAN PERCENT AUTO 0 % (0-1); LYMPHOCYTES ABSOLUTE AUTO 3.26 K/mm3 (0.84-5.20); LYMPHOCYTES PERCENT AUTO 28 % (21-46); MONOCYTES ABSOLUTE AUTO 0.81 K/mm3 (0.16-1.47); MONOCYTES PERCENT AUTO 7 % (4-13); Mean Corpuscular HGB 28.9 pg (26.0-34.0); Mean Corpuscular HGB Conc 33.2 g/dL (31.5-36.5); Mean Corpuscular Volume 87 fL (80-100); Mean Platelet Volume 11.2 fL (9.1-12.4); NEUTROPHILS ABSOLUTE AUTO 7.52 K/mm3 (1.96-9.15); NEUTROPHILS PERCENT AUTO 64 % (41-73); Platelet Count 277 K/mm3 (150-400); RDW Coefficient Variation 14.2 % (11.7-14.2); RDW Standard Deviation 45.7 fL (35.1-46.3); Red Blood Cell Count 4.39 M/mm3 (3.80-5.20); White Blood Cell Count 11.82 K/mm3 (4.00-11.30)
[2021-11-12 20:03] LABS: Albumin, Blood 3.6 g/dL (3.4-5.0); Albumin/Globulin Ratio 0.9 (0.8-1.8); Bilirubin, Total 0.2 mg/dL (0.1-1.0); Bun/Creatinine Ratio 12.9 (12.0-20.0); Calcium, Blood 8.7 mg/dL (8.5-10.1); Creatinine, Blood 0.7 mg/dL (0.40-1.00); Globulin, Blood 3.8 g/dL (2.2-4.0); Potassium, Blood 3.3 mmol/L (3.5-5.5); Total Protein, Blood 7.4 g/dL (6.4-8.2)
== END | disposition home or self-care (01) ==
LOC: LAB SHORT 19:34 → LAB 19:34
PROVIDERS: Chiropractor
DX: M79.662 Pain in left lower leg (principal)
CPT/HCPCS: 80053; 85025; 85379

== ENCOUNTER → 2024-06-20 | Outpatient (CLI) | payer OTHER ==
[~2024-06-20] MED LIST changes: +LAMO100 PO
[2024-06-20 17:15] LABS: Albumin, Blood 4.1 g/dL (3.4-5.0); Albumin/Globulin Ratio 1.2 (0.8-1.8); Bilirubin, Total 0.5 mg/dL (0.1-1.0); Bun/Creatinine Ratio 8.3 (12.0-20.0); Creatinine, Blood 0.84 mg/dL (0.40-1.00); Globulin, Blood 3.5 g/dL (2.2-4.0); Magnesium, Blood 2.1 mg/dL (1.6-2.4); Potassium, Blood 3.7 mmol/L (3.5-5.5); Total Protein, Blood 7.6 g/dL (6.4-8.2)
== END ==
LOC: LAB 16:57 → LAB SHORT 16:57
PROVIDERS: Family Medicine
DX: M79.605 Pain in left leg (principal)
CPT/HCPCS: 80053; 83735; 85379

== ENCOUNTER 2024-10-02 05:24 | Emergency (ER) | payer OTHER ==
[~2024-10-02] VITALS: Ht 172.7 cm; Wt 90.7 kg
[2024-10-02] MEDS ORDERED: Ondansetron HCl 2 MG / ML 2ML Vial IV PRN (05:40)
[2024-10-02 05:46] LABS: BASOPHILS ABSOLUTE AUTO 0.07 K/mm3 (0.00-0.23); BASOPHILS PERCENT AUTO 1 % (0-2); EOSINOPHILS ABSOLUTE AUTO 0.37 K/mm3 (0.00-0.68); EOSINOPHILS PERCENT AUTO 3 % (0-6); Hematocrit 37.7 % (33.0-51.0); Hemoglobin 12.8 g/dL (11.5-16.0); IMMATURE GRAN ABSOLUTE AUTO 0.03 K/mm3 (0.00-0.10); IMMATURE GRAN PERCENT AUTO 0 % (0-1); LYMPHOCYTES ABSOLUTE AUTO 4.25 K/mm3 (0.84-5.20); LYMPHOCYTES PERCENT AUTO 37 % (21-46); MONOCYTES ABSOLUTE AUTO 0.94 K/mm3 (0.16-1.47); MONOCYTES PERCENT AUTO 8 % (4-13); Mean Corpuscular HGB Conc 34.0 g/dL (31.5-36.5); Mean Corpuscular Volume 89 fL (80-100); NEUTROPHILS ABSOLUTE AUTO 5.97 K/mm3 (1.96-9.15); NEUTROPHILS PERCENT AUTO 51 % (41-73); NRBC ABSOLUTE 0.00 K/mm3 (0.00-0.02); NRBC Auto 0.0 /100 WBC (0.0-0.2); Platelet Count 296 K/mm3 (150-400); RDW Coefficient Variation 13.2 % (11.7-14.2); RDW Standard Deviation 43.5 fL (35.1-46.3)
[2024-10-02 06:13] LABS: Alanine Aminotransfer (ALT/SGP 24.0 U/L (12-78); Albumin, Blood 3.5 g/dL (3.4-5.0); Albumin/Globulin Ratio 1.1 (0.8-1.8); Anion Gap 8.0 mmol/L (3-11); Aspartate Aminotrans (AST/SGOT 15.0 U/L (12-37); Bilirubin, Total 0.2 mg/dL (0.1-1.0); Blood Urea Nitrogen 10.0 mg/dL (8-24); CO2, Blood 27.0 mmol/L (21-32); Calcium, Blood 8.4 mg/dL (8.5-10.1); Chloride, Blood 106.0 mmol/L (98-108); Creatinine, Blood 0.69 mg/dL (0.40-1.00); Globulin, Blood 3.3 g/dL (2.2-4.0); Glucose, Blood 130.0 mg/dL (70-99); Potassium, Blood 3.3 mmol/L (3.5-5.5); Sodium, Blood 138.0 mmol/L (136-145); Total Protein, Blood 6.8 g/dL (6.4-8.2)
[2024-10-02 07:17] LABS: Source, Urine Clean Catch
[2024-10-02 07:26] LABS: Bilirubin, Urine Neg (Neg); Color, Urine Yellow (P-Yellow); Glucose Qualitative, Urine Neg (Neg); Ketones, Urine Neg (Neg); Leukocyte Esterase, Urine Neg (Neg); Protein, Urine Neg (Neg); Specific Gravity, Urine 1.010 (1.003-1.022); Urobilinogen, Urine NORM (Normal)
[2024-10-02] MEDS ORDERED: ONDA4ODT MM (09:06)
[2024-10-02 09:10] VITALS: BP 139/87
== END 2024-10-02 09:17 | disposition home or self-care (01) ==
LOC: ER 05:24
PROVIDERS: Student in an Organized Health Care Education/Training Program
DX: R07.2 Precordial pain (principal); R06.02 Shortness of breath; R11.0 Nausea; R19.7 Diarrhea, unspecified; Z79.899 Other long term (current) drug therapy
CPT/HCPCS: 71046; 80053; 81003; 83690; 84484; 85025; 85379; 93005; 93010; 96374; 99285-25; A9270; J2405